=== PATIENT | female | born 1965 | race Caucasian/White ===

== ENCOUNTER 2019-11-18 05:50 | Inpatient (IN) | payer OTHER ==
[~2019-11-18] VITALS: Ht 157.5 cm; Wt 98.5 kg
--- NOTE | 2019-11-18 05:58 | NUR ---
BIBRA FROM HOME FOR C/O EPIGASTRIC PAIN X 5 DAYS. -N/V/D. PT AMBULATORY TO BED 3. A, OX3.
[2019-11-18] MEDS ORDERED: ONDANSETRON HCL/PF 4 MG/2 ML VIAL ONE (06:15)
[2019-11-18] MEDS ORDERED: MORPHINE SULFATE INJ 4 MG/ML DISP.SYRIN ONE (06:15)
[2019-11-18] MEDS ORDERED: ONDANSETRON HCL/PF 4 MG/2 ML VIAL IVP ONE (06:30)
[2019-11-18] MEDS ORDERED: IV NS 0.9% 1,000 ML BAG IV ONE (06:30)
[2019-11-18] MEDS ORDERED: MORPHINE SULFATE INJ 2 MG/ML DISP.SYRIN IV ONE (06:30)
[2019-11-18 06:31] LABS: BASOPHILS % (AUTO) 0.4 % (0.0-2.0); EOSINOPHILS % (AUTO) 2.5 % (0.0-6.0); HEMATOCRIT 40 % (33-45); HEMOGLOBIN 13.5 g/dL (11.5-14.8); LYMPHOCYTES # (AUTO) 1.3 /CMM (0.8-4.8); LYMPHOCYTES % (AUTO) 17.4 % (20.0-44.0); MEAN CORPUSCULAR HGB CONC 34 g/dl (31.0-36.0); MEAN CORPUSCULAR VOLUME 92 fL (82-100); MONOCYTES # (AUTO) 0.6 /CMM (0.1-1.30); MONOCYTES % (AUTO) 7.4 % (2.0-12.0); NEUTROPHILS # (AUTO) 5.5 /CMM (1.8-8.9); NEUTROPHILS % (AUTO) 72.3 % (43.0-81.0); PLATELET COUNT (AUTO) 316 /CMM (150-450); WHITE BLOOD COUNT (AUTO) 7.6 K/uL (4.3-11.0)
[2019-11-18 06:33] LABS: APPEARANCE,URINE CLEAR (CLEAR); BILIRUBIN,URINE NEGATIVE (NEGATIVE); BLOOD, URINE NEGATIVE Ery/uL (NEGATIVE); KETONES,URINE NEGATIVE (NEGATIVE); LEUKOCYTE ESTERASE ,URINE NEGATIVE (NEGATIVE); NITRITE, URINE NEGATIVE (NEGATIVE); PH,URINE 8.5 (5.0-8.0); PROTEIN,URINE NEGATIVE (NEGATIVE); UGLUCOSE NEGATIVE (NEGATIVE); UROBILINOGEN,URINE 0.2 EU/dL (0.2)
[2019-11-18 06:35] LABS: COLOR,URINE STRAW (YELLOW)
--- NOTE | 2019-11-18 06:36 | NUR ---
pt was picked up for CT
[2019-11-18] MEDS ORDERED: diphenhydrAMINE HCL 50 MG/ML VIAL ONE (06:56)
[2019-11-18] MEDS ORDERED: diphenhydrAMINE HCL 50 MG/ML VIAL IM ONE (07:00)
--- NOTE | 2019-11-18 07:13 | NUR ---
RECEIVED REPORT FROM TAMIR HERNANDEZ FOR DINH, PT IS AAOX4, NOT IN RESPIRATORY DISTRESS, V/S STABLE, KEPT RESTED AND COMFORTABLE, WILL CONTINUE TO MONITOR.
[2019-11-18 07:21] LABS: ALBUMIN 3.4 g/dL (3.4-5.0); BILIRUBIN,TOTAL 0.1 mg/dL (0.2-1.0); CREATININE 1.1 mg/dL (0.6-1.3); POTASSIUM 3.6 mmol/L (3.5-5.1); TOTAL PROTEIN, SERUM 6.8 g/dL (6.4-8.2)
[2019-11-18] MEDS ORDERED: HYDROMORPHONE 1 MG/1 ML DISP.SYRIN ONE (07:29)
[2019-11-18] MEDS ORDERED: HYDROMORPHONE 1 MG/1 ML DISP.SYRIN IV ONE (07:30)
[2019-11-18] MEDS ORDERED: PANTOPRAZOLE 40 MG VIAL IV ONE (07:30)
[2019-11-18] MEDS ORDERED: PANTOPRAZOLE 40 MG VIAL ONE (07:32)
--- NOTE | 2019-11-18 07:36 | NUR ---
panel on-call paged
--- NOTE | 2019-11-18 08:01 | NUR ---
ROOM GIVEN [phone]
--- NOTE | 2019-11-18 08:25 | NUR ---
GI FISH ICER DR ARSHAD PAGED THER SECOND TIME.
--- NOTE | 2019-11-18 08:56 | NUR ---
PT ASLEEP ON BED EASILY AROUSABLE, AAOX4, NOT IN RESPIRATORY DISTRESS ,V/S STABLE, KEPT RESTED AND COMFORTABLE, AWIATING GI FOR CONSULT.
[2019-11-18] MEDS ORDERED: QUET200T PO (09:02)
[2019-11-18] MEDS ORDERED: MULT-24 PO (09:02)
[2019-11-18] MEDS ORDERED: DIATR MEGLU/DIATRIZOATE SODIUM 120 ML BOTTLE (GASTROGRAPHIN) ONE (09:21)
--- NOTE | 2019-11-18 10:20 | NUR ---
REPORT GIVEN TO TAMIR YOUNG FOR DINH.
[2019-11-18] MEDS ORDERED: Z GUARD REMEDY 2 OZ OINT TP PRN (10:30)
[2019-11-18] MEDS ORDERED: ACETAMINOPHEN 325 MG TABLET PO PRN (10:30)
[2019-11-18] MEDS ORDERED: ONDANSETRON HCL/PF 4 MG/2 ML VIAL IVP PRN (10:30)
[2019-11-18 10:40] VITALS: BP 123/86
--- NOTE | 2019-11-18 10:40 | NUR ---
MS RN NOTES ADMITTED PATIENT FROM ER REPORT GIVEN BY VIOLA GARNETT, NO ACUTE DISTRESS, NO SOB NOTED. DENIED ANY PAIN AT THIS TIME. IV ACCESS PATENT AND INTACT, NO REDNESS NO SWELLING NOTED. PATIENT ALERT ORIENTED X 3. ORIENTED TO THE ROOM. CALL LIGHT PLACED WITHIN REACH. SAFETY MEASURES IN PLACE.
[2019-11-18 11:30] VITALS: BP 123/86
[2019-11-18] MEDS: IV NS 0.9% 1,000 ML IV PRN (12:16)
[2019-11-18] MEDS: MORPHINE SULFATE INJ 2 MG/ML DISP.SYRIN IV PRN ×2 (15:47→22:50)
[2019-11-18 16:00] VITALS: BP 108/73
[2019-11-18] MEDS: DOCUSATE SODIUM 100 MG CAPSULE PO SCH (17:00)
--- NOTE | 2019-11-18 18:57 | NUR ---
MS RN NOTES PATIENT IN BED ALERT ORIENTED X 4. NO ACUTE DISTRESS NOTED. BREATHING UNLABORED. NO SOB NOTED. NEEDS ATTENDED AND ANTICIPATED. KEPT CLEAN DRY AND COMFORTABLE. SAFETY MEASURES IN PLACE. CALL LIGHT WITHIN REACH. WILL ENDORSE TO NIGHT NURSE FOR CONTINUITY OF CARE
--- NOTE | 2019-11-18 19:30 | NUR ---
MS RN OPENING NOTE RECEIVED PATIENT IN BED. TOLERATING ROOM ROOM AIR. RESPIRATIONS ARE EVEN AND UNLABORED. NO S/S SOB NOTED. DENIES PAIN AT THIS TIME. IN NO APPARENT DISTRESS. IV ACCESS IN LAC #18 RUNNING NS@75ML/HR. BED IS LOW AND LOCKED, HOB FLAT, SIDE RAILS UP X2, CALL LIGHT WITHIN REACH. WILL CONTINUE TO MONITOR.
[2019-11-18 20:00] VITALS: BP 109/61
--- NOTE | 2019-11-18 22:50 | NUR ---
MS RN NOTE ADMINISTERED PRN MORPHINE 1MG FOR PAIN 8/10 IN UPPER ABDOMEN. WILL CONTINUE TO MONITOR. WASTE WITNESSED BY MARY GARNETT. WASTE PLACED IN RX DESTROYER.
--- NOTE | 2019-11-18 23:18 | NUR ---
MS RN NOTE OBTAINED CONSENT FOR EGD, BLOOD, AND ANESTHESIA. WILL PLACE IN CHART.
[2019-11-19] MEDS: MORPHINE SULFATE INJ 2 MG/ML DISP.SYRIN IV PRN ×3 (05:10→11:09)
[2019-11-19] MEDS: IV NS 0.9% 1,000 ML IV PRN (05:10)
[2019-11-19 06:24] LABS: BASOPHILS % (AUTO) 0.7 % (0.0-2.0); EOSINOPHILS % (AUTO) 4.2 % (0.0-6.0); HEMATOCRIT 38 % (33-45); HEMOGLOBIN 12.6 g/dL (11.5-14.8); LYMPHOCYTES # (AUTO) 1.7 /CMM (0.8-4.8); LYMPHOCYTES % (AUTO) 32.4 % (20.0-44.0); MEAN CORPUSCULAR HGB CONC 33 g/dl (31.0-36.0); MEAN CORPUSCULAR VOLUME 93 fL (82-100); MONOCYTES # (AUTO) 0.4 /CMM (0.1-1.30); NEUTROPHILS # (AUTO) 2.8 /CMM (1.8-8.9); NEUTROPHILS % (AUTO) 54.7 % (43.0-81.0); PLATELET COUNT (AUTO) 282 /CMM (150-450); RED BLOOD CELL COUNT(AUTO) 4.04 MIL/uL (4.0-5.2); WHITE BLOOD COUNT (AUTO) 5.1 K/uL (4.3-11.0)
[2019-11-19 06:51] LABS: ALBUMIN 2.8 g/dL (3.4-5.0); BILIRUBIN,TOTAL 0.3 mg/dL (0.2-1.0); CALCIUM, SERUM 8.1 mg/dL (8.5-10.1); MAGNESIUM 2.1 mg/dL (1.8-2.4); PHOSPHORUS 3.3 mg/dL (2.5-4.9); TOTAL PROTEIN, SERUM 5.6 g/dL (6.4-8.2)
--- NOTE | 2019-11-19 07:34 | NUR ---
MS RN CLOSING NOTE PATIENT IN BED. REMAINS TOLERATING ROOM ROOM AIR. RESPIRATIONS ARE EVEN AND UNLABORED. NO SOB NOTED. NO C/O PAIN THROUGHOUT SHIFT. NO DISTRESS NOTED. IV ACCESS MAINTAINED IN LAC #18 RUNNING NS@75ML/HR. BED IS LOW AND LOCKED, HOB FLAT, SIDE RAILS UP X2, CALL LIGHT WITHIN REACH. WILL ENDORSE TO NEXT SHIFT
--- NOTE | 2019-11-19 08:00 | NUR ---
MS RN OPENING NOTE RECEIVED PATIENT IN BED. AWAKE ALERT AND ORIENTED X4. NO CARDIAC OR RESPIRATORY DISTRESS NOTED.PT IS KEPT NPO, SHE IS AWAITING FOR THE EGD. NO SOB NOTED, SATURATING WELL ON ROOM AIR. RESPIRATIONS ARE EVEN AND UNLABORED. DENIES PAIN AT THIS TIME. NO COMPLAINTS OF PAIN OR DISCOMFORT. PT IS IN NO APPARENT DISTRESS. IV ACCESS IN L HAND #20 RUNNING NS RUNNING @75ML/HR. BED IS LOW AND LOCKED, HOB FLAT, SIDE RAILS UP X2, CALL LIGHT WITHIN REACH. WILL CONTINUE TO MONITOR.
[2019-11-19 08:08] VITALS: BP 110/72
[2019-11-19] MEDS ORDERED: FENTANYL PF 100MCG/2ML AMPUL ONE ×2 (08:20→09:28)
--- NOTE | 2019-11-19 08:30 | NUR ---
LEFT FOR EGD PT PICKED UP FOR EGD, IN STABLE CONDITION.
[2019-11-19] MEDS ORDERED: ANESTHESIA TRAY IN PYXIS 1 EA TRAY MC ONE (08:39)
[2019-11-19] MEDS: DOCUSATE SODIUM 100 MG CAPSULE PO SCH ×2 (08:53→17:29)
[2019-11-19] MEDS: PANTOPRAZOLE 40 MG VIAL IV SCH (08:53)
[2019-11-19] MEDS ORDERED: EPINEPHRINE (1:10,000) SYRINGE 1 MG/10 ML DISP.SYRIN ONE (09:08)
--- NOTE | 2019-11-19 11:00 | NUR ---
CAME BACK FROM EGD IN STABLE CONDITION. VS BEING CHECKED. (PLS SEE FLOW SHEET)
--- NOTE | 2019-11-19 11:15 | NUR ---
REFUSING IV FLUIDS PT REFUSING IV FLUIDS. PER PT SHE DOESNT WANT IT OR NEED IT. EXPLAINED RISKS, CONSEQUENCES AND NEGATIVE OUTCOMES OF NON COMPLIANT BEHAVIOR 3X. PT UNDERSTOOD.
[2019-11-19] MEDS ORDERED: DICYCLOMINE HCL 10 MG CAPSULE PO PRN (11:30)
[2019-11-19] MEDS: SUCRALFATE 1 G TABLET PO SCH ×3 (12:37→21:16)
[2019-11-19 16:00] VITALS: BP 96/52
--- NOTE | 2019-11-19 19:00 | NUR ---
MS RN CLOSING NOTE PATIENT IN BED. ASLEEP, AROUSABLE, ALERT AND ORIENTED X4. NO CARDIAC OR RESPIRATORY DISTRESS NOTED.NO SOB NOTED, SATURATING WELL ON ROOM AIR. RESPIRATIONS ARE EVEN AND UNLABORED. DENIES PAIN AT THIS TIME. NO COMPLAINTS OF PAIN OR DISCOMFORT. PT IS IN NO APPARENT DISTRESS. PT STILL REFUSING IV FLUIDS. EXPAINED RISKS AND BENEFITS X3, SHE STILL STATES THAT SHE DOESN'T NEED IT. BED IS LOW AND LOCKED, HOB FLAT, SIDE RAILS UP X2, CALL LIGHT WITHIN REACH.
--- NOTE | 2019-11-19 19:49 | NUR ---
MS RN NOTES PATIENT IN BED, ASLEEP, EASILY AROUSED. ALERT AND ORIENTED X 4. BREATHING EVEN AND UNLABORED ON ROOM AIR. SHOWS NO SIGNS OF ACUTE RESPIRATORY DISTRESS. NO ACUTE PAIN. IV ON L HAND 20G. PATIENT REFUSING ORDER OF NS. IV IS CLEAN DRY AND INTACT. SHOWS NO SIGNS OF INFILTRATION, NO REDNESS. SAFETY PRECAUTIONS IN PLACE. BED IN LOWEST POSITION, LOCKED, AND CALL LIGHT KEPT WITHIN REACH. WILL CONTINUE TO MONITOR.
--- NOTE | 2019-11-19 20:13 | NUR ---
Spoke with patient, states she currently resides in a single room at the [facility] in [place]. Her mental health case therapist at [facility] is Rivas Phillips. States she is ambulatory and independent with adl's. Denies having DME or homehealth. She sees her pcp at the [facility]. She will need bus token when discharge. Addendum: 11/19/19 at 2020 by LORETA ALDRICH RN Amended: Links added.
--- NOTE | 2019-11-20 07:07 | NUR ---
MS RN NOTES PATIENT IN BED, ASLEEP, EASILY AROUSED. ALERT AND ORIENTED X 4. BREATHING EVEN AND UNLABORED ON ROOM AIR. SHOWS NO SIGNS OF ACUTE RESPIRATORY DISTRESS. NO ACUTE PAIN. IV ON L HAND 20G. PATIENT REFUSING ORDER OF NS. IV IS CLEAN DRY AND INTACT. SHOWS NO SIGNS OF INFILTRATION, NO REDNESS. EDUCATED PATIENT ON IMPORTANCE OF HYDRATION IV AND MEDICATIONS. PATIENT CONTINUED TO REFUSED. SAFETY PRECAUTIONS IN PLACE. BED IN LOWEST POSITION, LOCKED, AND CALL LIGHT KEPT WITHIN REACH. WILL ENDORSE TO ONCOMING NURSE.
[2019-11-20] MEDS ORDERED: OMEP40CA13 PO (08:08)
[2019-11-20] MEDS ORDERED: SUCR1ORA4 PO (08:08)
[2019-11-20] MEDS: SUCRALFATE 1 G TABLET PO SCH ×3 (08:28→17:00)
[2019-11-20] MEDS: DOCUSATE SODIUM 100 MG CAPSULE PO SCH ×2 (09:22→17:00)
[2019-11-20] MEDS: PANTOPRAZOLE 40 MG VIAL IV SCH (09:22)
[2019-11-20 16:13] VITALS: BP 129/78
--- NOTE | 2019-11-20 16:48 | NUR ---
DISCHARGED HOME PT DISCHARGED HOME IN STABLE CONDITION. PT LEFT BY HERSELF AND SHE STATED THAT SHE WILL NOT NEED ANY ASSISTANCE WITH TRANSPORTATION. I OFFERED HER BUS PAS/TAXI, SHE STATES THAT SHE DOESNT NEED IT ANY THAT SHE STILL HAS ERRANDS TO RUN BEFORE GOING HOME. HOWEVER, PT WAS VERY APPRECIATIVE THAT I OFFERED. ALL D/C INSTRUCTIONS AND PAPERWORKS WERE PROVIDED TO THE PT. EXPLAINED CURRENT MEDS ORDERED IN [place] TERM. I EXPLAINED TO HER TO MAKE A FOLLOW UP APPOINTMENT WITH HER PRIMARY PHYSICIAN IN 1 WEEK OR SOON POSSIBLE, AND TO BRING COPIES OF COUNSULTS AND LABS PROVIDED BY THE HOSPITAL. SHE UNDERSTOOD AND AGREED. PTS VITAL SIGNS STABLE. PT LEFT IN STABLE CONDITION. PT LEFT AND WAS VERY HAPPY THAT SHE IS GOING HOME AND WAS VERY APPRECIATIVE OF ALL THE CARE THE HOSPITAL PROVIDED.
== END 2019-11-20 16:35 | disposition home or self-care (01) | DRG 241 ==
LOC: ER 05:52 → MED 10:37
PROVIDERS: ADMIT Internal Medicine; ATTEND Internal Medicine
PROC: 0W3P8ZZ Control Bleeding in Gastrointestinal Tract, Via Natural or Artificial Opening Endoscopic (ICD-10-PCS; principal; 2019-11-19)
DX: K26.0 Acute duodenal ulcer with hemorrhage (principal); K31.1 Adult hypertrophic pyloric stenosis; E66.01 Morbid (severe) obesity due to excess calories; K86.1 Other chronic pancreatitis; K31.89 Other diseases of stomach and duodenum; Z86.59 Personal history of other mental and behavioral disorders; Z79.899 Other long term (current) drug therapy; Z98.890 Other specified postprocedural states; K44.9 Diaphragmatic hernia without obstruction or gangrene; K21.0 Gastro-esophageal reflux disease with esophagitis; K29.70 Gastritis, unspecified, without bleeding
CPT/HCPCS: 36415; 74246-TC; 80048-TC; 80053-TC; 80061-TC; 80076-TC; 81000-TC; 83735-TC; 84100-TC; 85025-TC; 87081-TC; 88305-TC; 88313-TC; 88342; C9113; G0378; J0171; J1170; J1200; J2270; J2405; J3010; J7030; Q9963

== ENCOUNTER 2019-11-23 01:20 | Emergency (ER) | payer OTHER ==
[~2019-11-23] VITALS: Ht 157.5 cm; Wt 99.8 kg
[~2019-11-23 01:20] MED LIST: MULT-24 PO; OMEP40CA13 PO; QUET200T PO; SUCR1ORA4 PO
--- NOTE | 2019-11-23 02:01 | NUR ---
BIBRA TO ER BED 4. AAOX4. NO RESP DISTRESS NOTED. AMBULATORY. C/O EPIGASTRIC PAIN. PT STATES THAT SHE WAS RECENTLY DISCHARGED FROM ANOTHER HOSPITAL AND GOT PRESCRIPTION FOR PROTONIX D/T ULCER. PT HAS NO MEDICATION AND IN PAIN THATS WHY SHE CALL 911. AWARE. AWAITING EVAL.
[2019-11-23] MEDS ORDERED: PANTOPRAZOLE 40 MG TABLET.DR PO ONE ×2 (02:35→03:00)
[2019-11-23 05:22] VITALS: BP 111/68
--- NOTE | 2019-11-23 05:22 | NUR ---
Patient discharged to home in stable condition. Written and verbal after care instructions given. Patient verbalizes understanding of instruction.
== END 2019-11-23 05:23 | disposition home or self-care (01) ==
LOC: ER 01:21
DX: R10.9 Unspecified abdominal pain (principal); Z79.899 Other long term (current) drug therapy